=== PATIENT | female | born 2000 | race Two or more races ===

== ENCOUNTER 2022-04-07 07:46 | Inpatient (IN) | payer OTHER ==
[~2022-04-07] VITALS: Ht 160 cm; Wt 94.3 kg
[2022-04-07] MEDS ORDERED: PRENATAL + DHA1 EAC1 PO (10:53)
== END 2022-04-10 14:04 | disposition home or self-care (01) | DRG 807 ==
LOC: LDR 07:46 → OB/GYN 07:46 → LDR 22:18 → OB/GYN 04-08 13:56
PROVIDERS: ADMIT Obstetrics & Gynecology; ATTEND Obstetrics & Gynecology
PROC: 10E0XZZ Delivery of Products of Conception, External Approach (ICD-10-PCS; principal; 2022-04-07)
PROC: 4A1HXCZ Monitoring of Products of Conception, Cardiac Rate, External Approach (ICD-10-PCS; 2022-04-07)
DX: O80 Encounter for full-term uncomplicated delivery (principal); Z37.0 Single live birth; Z3A.39 39 weeks gestation of pregnancy; Z20.822 Contact with and (suspected) exposure to COVID-19